=== PATIENT | female | born 1945 | race Caucasian/White ===

== ENCOUNTER 2016-12-31 10:36 | Inpatient (IN) ==
[2016-12-31 11:02] LABS: BILIRUBIN URINE NEGATIVE (NEGATIVE); BLOOD URINE NEGATIVE (NEGATIVE); CLARITY CLEAR (CLEAR); COLOR YELLOW; GLUCOSE URINE NEGATIVE (NEGATIVE); LEUKOCYTES URINE 1+ (NEGATIVE); NITRITE URINE NEGATIVE (NEGATIVE); PROTEIN URINE TRACE mg/dL (NEGATIVE); SP GRAVITY URINE 1.005; UROBILINOGEN URINE NORMAL
[2016-12-31 11:09] LABS: URINE CULTURE PL NEEDED? YES; URINE EPITHELIAL CELLS >10 /HPF (<10); URINE SOURCE CLEAN CATCH
[2016-12-31 11:18] LABS: BASO% 0.1 % (0.0-0.8); EOS# 0.06 X1000 (0.0-0.7); EOS% 0.5 % (0.0-10.0); HEMATOCRIT 41.6 % (37.0-47.0); HEMOGLOBIN 14.1 g/dL (12.0-16.0); IMM GRAN# 0.03 X1000 (0.0-0.04); IMM GRAN% 0.2 % (0.0-0.5); LYMPH# 1.19 X1000 (1.2-3.4); LYMPH% 9.2 % (20.5-51.1); MANUAL DIFF NEEDED? NO; MCH 30.2 PG (27-31); MCHC 33.9 g/dL (33-37); MCV 89.1 FL (81-99); MONO# 0.45 X1000 (0.11-0.59); MONO% 3.5 % (1.7-9.3); MPV 8.9 FL (7.4-10.4); NEUT% 86.5 % (42.2-75.2); PLT 327 X1000 (130-400); RBC 4.67 XMIL (4.2-5.4)
--- NOTE | 2016-12-31 11:26 | PROVIDER DOCUMENTATION ---
HPI-Abdominal Pain/GI Problem - General Chief Complaint: Abdominal Pain Stated Complaint: ABD PAIN Time Seen by Provider: 12/31/16 10:51 Source: patient Allergies/Adverse Reactions: Patient Allergies Allergy/AdvReac Type Severity Reaction Status Date / Time amphetamine aspartate * Allergy RASH Verified 12/07/16 21:57 [From Adderall] amphetamine sulfate * Allergy RASH Verified 12/07/16 21:57 [From Adderall] dextroamphetamine saccharate Allergy RASH Verified 12/07/16 21:57 * [From Adderall] dextroamphetamine sulfate * Allergy RASH Verified 12/07/16 21:57 [From Adderall] quetiapine fumarate * Allergy Unknown Verified 12/07/16 21:57 [From Seroquel] Home Medications: Home Medication List Medication Instructions Recorded Confirmed Last Taken Type Duloxetine HCl [Duloxetine HCl] 12/07/16 Unknown History Duloxetine [Cymbalta] 60 mg PO DAILY 12/07/16 12/07/16 12/06/16 History Ondansetron Odt [Zofran Odt] 12/07/16 Unknown History Sitagliptin [Januvia] 12/07/16 12/07/16 History Triamterene/Hydrochlorothiazid 12/07/16 12/07/16 History [Triamterene-Hctz 37.5-25 mg Cp] Diazepam [Valium] 10 mg PO TID #15 tablet 12/08/16 Unknown Rx Oxycodone HCl/Acetaminophen 1 each PO TID #15 tablet 12/08/16 Unknown Rx [Percocet 10-325 mg Tablet] - History of Present Illness-ABD Nature of Presenting Problems: 71 yo female presents to ER with c/o abdominal cramping/N/V that started yesterday afternoon. Her abd pain started in epigastric area and radiated bilateral LQ and settled into RLQ. She did have a moderate loose BM last night (she has a BM everyday). At 2 am she started vomiting. Abdominal Pain Onset Location: reports: generalized abdomen Pain Radiation: reports: no radiation Quality of Pain: reports: cramping Severity in ED: reports: severe Onset/Duration: reports: 24 hours ago Timing: reports: still present, getting worse Activities at Onset: reports: none Exposure to sick contacts?: No Modifying Factors: improves with: eating (worsens) Associated Symptoms: reports: nausea, vomiting Last BM: last night Dark Stools Present?: reports: none noticed Rectal Bleeding: reports: none # of Diarrhea Episodes: 0 Rectal Pain: reports: none # of Vomiting Episodes: 2 Emesis Description: reports: clear Bruising or Bleeding Gums?: No Similar Symptoms Previously?: No Recently seen or treated by another doctor?: No Review of Systems - Adult - REVIEW OF SYSTEMS - ADULT Constitutional: reports: no symptoms reported Eyes: reports: no symptoms reported Ears, Nose, Mouth & Throat: reports: no symptoms reported Cardiovascular: reports: no symptoms reported Respiratory: reports: no symptoms reported Gastrointestinal: reports: see HPI, abdominal pain, nausea, vomiting Genitourinary: reports: no symptoms reported Musculoskeletal: reports: no symptoms reported Integumentary: reports: no symptoms reported Neurological: reports: no symptoms reported Psychiatric: reports: no symptoms reported Endocrine: reports: no symptoms reported Hematologic/Lymphatic: reports: no symptoms reported Allergic/Immunologic: reports: no symptoms reported All Other Systems: Reviewed and Negative Past History - Adult - PAST MEDICAL HISTORY-ADULT Review of Records: reports: Old Records Reviewed, Nursing Assessment Review, Medications Reviewed, Social history reviewed & non-contributory. Major Childhood Illnesses: reports: denies history Cardiovascular: reports: HTN Respiratory: reports: denies history Gastrointestinal: reports: GERD Musculoskeletal: reports: chronic pain, intervertebral disc disease, other fractures, orthopedic injury Endocrine/Immune: reports: Diabetes - PRIOR SURGERIES/PROCEDURES Surgical/Procedure History: reports: hysterectomy, orthopedic (extremity) ( right shoulder x 3), back/neck - IMMUNIZATION STATUS Childhood Immunizations: See Nurse Assessment Flu Vaccine: See Nurse Assessment - SOCIAL HISTORY Smoking: denies Substance Use: denies Living Situation: family Physical Exam-General - PHYSICAL EXAM-ADULT Initial Vital Signs Reviewed: Yes - CONSTITUTIONAL General Appearance: appears well, alert, no apparent distress - EYES Eyes: PERRL/EOMI - HEAD, EARS, NOSE, MOUTH & THROAT HENMT: normocephalic/atraumatic - RESPIRATORY Respiratory: lungs clear, normal breath sounds - CARDIOVASCULAR Cardiovascular: normal peripheral pulses, regular rate, rhythm - GASTROINTESTINAL (ABDOMEN) Abdominal Exam: soft, abnormal bowel sounds (hypoactive), tenderness ( generalized; RLQ especially). negative: distended, guarding - MUSCULOSKELETAL Back Exam: normal inspection Extremity: normal gait, no pedal edema Peripheral Pulses: radial (R): 2+, radial (L): 2+ - SKIN Integumentary: normal color, normal turgor, warm/dry - NEUROLOGIC Neurologic: grossly normal - PSYCHIATRIC Psych/Mental Status: normal mood/affect, normal thought content, normal thought process, oriented x 3 Progress - PLAN OF CARE/RESULTS Progress/Plan/Lab Results: Vital Signs - 8 hr 12/31/16 10:41 Temperature 97.2 F L Pulse Rate 81 Respiratory Rate 18 Blood Pressure 135/74 O2 Sat by Pulse Oximetry 93 L Laboratory Results - last 24 hr 12/31/16 12/31/16 10:48 11:11 WBC 12.87 H RBC 4.67 Hgb 14.1 Hct 41.6 MCV 89.1 MCH 30.2 MCHC 33.9 RDW Std Deviation 12.9 Plt Count 327 MPV 8.9 Immature Gran % (Auto) 0.2 Neut % (Auto) 86.5 H Lymph % (Auto) 9.2 L [place] % (Auto) 3.5 Eos % (Auto) 0.5 Baso % (Auto) 0.1 Immature Gran # (Auto) 0.03 Neut # (Auto) 11.13 H Lymph # (Auto) 1.19 L [place] # (Auto) 0.45 Eos # (Auto) 0.06 Baso # (Auto) 0.01 Urine Source CLEAN CATCH Urine Color YELLOW Urine Clarity CLEAR Urine pH 7.0 Ur Specific [place] 1.005 Urine Protein TRACE A Urine Ketones TRACE Urine Blood NEGATIVE Urine Nitrite NEGATIVE Urine Bilirubin NEGATIVE Urine Urobilinogen NORMAL Urine Microscopic RBC Not Reportable Urine WBC 1+ A Urine Microscopic WBC 10-20 A Ur Epithelial Cells >10 A Urine Bacteria 2+ Urine Glucose NEGATIVE Orders Category Date Time Status Saline Loc DIRECTED Care 12/31/16 10:43 Completed NPO Diet 12/31/16 10:43 Active FLAT/UPRIGHT ABD/1 VIEW CHEST [RAD] Stat Exams 12/31/16 10:51 Taken AMYLASE [CHEM] Stat Lab 12/31/16 11:11 Received CBC WITH ELECTRONIC DIFF [HEME] Stat Lab 12/31/16 11:11 Completed COMPREHENSIVE METABOLIC PANEL [CHEM] Stat Lab 12/31/16 11:11 Received LIPASE [CHEM] Stat Lab 12/31/16 11:[address] W/POSS RFLX CULT [URINALYSIS] Stat Lab 12/31/16 10:48 Completed URINE CULTURE [RM] Routine Lab 12/31/16 11:09 Ordered 1340-Discussed with patient/spouse dx of appendicitis and consult to surgery; questions answered and they verbalized understanding. Result Diagrams: 12/31/16 11:11 12/31/16 11:11 - XRAY 1 XRAY Study: Chest, Abdomen Impression: Normal (no acute disease) XRAY Interpretation: Interpreted by Dr. Zamorano - CT/MRI 1 CT Study: Abdomen, Pelvis Impression: Abnormal (appendicitis w/o free air or abscess) CT Results: Interpreted by Dr. Zamorano - CONSULTS/PCP/HOSPITALIST Notification #1 *Consult/PCP/Hospitalist*: Dr. Chow Time Discussed: 13:44 (surgeon manager information) Consult Disposition: Will see in ED Departure - Departure Time of Disposition Decision: 13:42 DIAGNOSIS: Nausea & vomiting, Abdominal cramping Appendicitis Qualifiers: Appendicitis type: acute appendicitis Acute appendicitis type: other Qualified Code(s): K35.89 - Other acute appendicitis Disposition: ADMITTED INPATIENT 09 Certified Medical Emergency: Emergent Condition: Stable - Critical Care Note This patient required my direct personal management.: No Attestation - Physician/ TOMMY Attestation Patient care was provided by Advanced Practice Provider:: Yes Advanced Practice Provider:: Tammy Whiting Advanced Practice Provider documentation review:: The Mid-level provider documentation, treatment plan and medical decision making was reviewed by the physician who agrees with all treatment and medical decision making by the [facility].
[2016-12-31 11:30] LABS: AGAP 14; ALBUMIN 4.1 g/dL (3.5-5.0); ALKALINE PHOSPHATASE 174 U/L (32-104); AMYLASE 61 U/L (20-200); BUN 10 mg/dL (8-22); CALCIUM 9.4 mg/dL (8.8-10.2); CHLORIDE 96 mmol/L (98-107); COSMO 273; GOT 20 U/L (10-30); GPT 20 U/L (10-36); LIPASE 18 U/L (13-60); POTASSIUM 3.8 mmol/L (3.5-5.1); SODIUM 135 mmol/L (136-145); TCO2 25 mmol/L (25-35); TOTAL PROTEIN 7.3 g/dL (6.3-8.3)
[2016-12-31] MEDS ORDERED: ZOFRAN IV ONE (11:53)
[2016-12-31] MEDS ORDERED: PROTONIX IV ONE (11:53)
[2016-12-31] MEDS ORDERED: NS 500 ML IV ONE (11:53)
[2016-12-31] MEDS ORDERED: SODIUM CHLORIDE 0.9% INJ ONE (11:53)
[2016-12-31] MEDS ORDERED: MORPHINE IV ONE (11:55)
--- NOTE | 2016-12-31 11:55 | Diag Imaging Result Document ---
PROCEDURE NAME: FLAT/UPRIGHT ABD/1 VIEW CHEST - 12/31/2016 FLAT AND UPRIGHT AND CHEST, 3 VIEWS: FINDINGS: The lungs are well expanded. No pneumonia. No cardiomegaly. No free air beneath the diaphragm. No bowel obstruction. No organomegaly. No abnormal abdominal or pelvic calcifications. Mild scoliosis with degenerative spine changes. IMPRESSION: No acute abnormality.
[2016-12-31] MEDS ORDERED: ZOSYN 3.375 GM/NS 3.375 GM/50 ML IVPB IV ONE (14:29)
--- NOTE | 2016-12-31 14:54 | HISTORY AND PHYSICAL ---
CHIEF COMPLAINT: Abdominal pain. HISTORY OF PRESENT ILLNESS: A 71-year-old female with acute onset of abdominal pain yesterday evening described as crampy in nature in her mid abdomen and radiating and now located in her right lower quadrant this morning. This severity has been moderate with associated nausea and vomiting. It is worsened with standing up and it is lessened with morphine. PAST MEDICAL HISTORY: Hypertension. Diabetes. Depression. Chronic back pain. HOME MEDICATIONS: Oxycodone. Valium. Januvia. Triamterene/hydrochlorothiazide. Cymbalta. ALLERGIES: Adderall and Seroquel. PAST SURGICAL HISTORY: Vaginal hysterectomy. Right shoulder surgery. Low back surgery. FAMILY HISTORY: Reviewed and noncontributory. SOCIAL HISTORY: Negative for tobacco. She drinks a beer 1-3 times per week. No illicit drug use. She is retired nurse. REVIEW OF SYSTEMS: Ten systems reviewed and negative except as noted above. PHYSICAL EXAMINATION: VITAL SIGNS: Temperature 98.9 degrees, pulse 92, respirations 18, blood pressure 105/55, O2 saturation 95%. GENERAL: A well-developed, well-nourished female, in no distress who looks her stated age. HEENT: Normocephalic, atraumatic. Extraocular muscles intact. Pupils equal, round, reactive to light. Sclerae anicteric. Moist mucous membranes. Hearing grossly normal. NECK: Supple. No thyromegaly. CARDIOVASCULAR: Regular rate and rhythm. RESPIRATORY: Bilateral equal breath sounds. GASTROINTESTINAL: Soft, nondistended. No organomegaly or mass. She does have a positive rebound tenderness and she is focally tender in the right lower quadrant. SKIN: Warm and dry. No rash. MUSCULOSKELETAL: Moves all extremities equally and well. EXTREMITIES: No clubbing, cyanosis, or edema. LABORATORY: White blood cell count 12.8, hemoglobin 14, platelet count 327,000. Complete metabolic profile reviewed and notable for glucose of 167. Shows normal BUN and creatinine, amylase and lipase. IMAGING: CT of abdomen and pelvis was done and reviewed by me and does show inflamed swollen appendix without evidence of perforation. ASSESSMENT/PLAN: A 71-year-old female with acute appendicitis. We are going to the operating room this afternoon for laparoscopic appendectomy. I discussed the risks, benefits, and alternatives with her including bleeding, infection, injury to surrounding organs, such as the intestines or ureter, incisional hernia, and other imponderables. She understands and agrees to proceed. cc: Garcia Chow MD
[2016-12-31] MEDS ORDERED: ZEMURON ONE (15:00)
[2016-12-31] MEDS ORDERED: FENTANYL ONE (15:00)
[2016-12-31] MEDS ORDERED: ROBINUL ONE (15:00)
[2016-12-31] MEDS ORDERED: NEOSTIGMINE ONE (15:00)
[2016-12-31] MEDS ORDERED: DIPRIVAN 1% ONE (15:00)
[2016-12-31] MEDS ORDERED: DECADRON ONE (15:00)
[2016-12-31] MEDS ORDERED: QUELICIN ONE (15:00)
[2016-12-31] MEDS ORDERED: ZOFRAN ONE (15:00)
[2016-12-31] MEDS ORDERED: MARCAINE 0.25% PF/EPI 1:200,000 ONE ×2 (15:09)
[2016-12-31] MEDS ORDERED: LR 1,000 ML ONE ×2 (15:10)
--- NOTE | 2016-12-31 15:58 | Diag Imaging Result Document ---
PROCEDURE NAME: CT ABD/PELVIS W/ IV CONT ONLY - 12/31/2016 CT ABDOMEN AND PELVIS WITH INTRAVENOUS CONTRAST: FINDINGS: There is fatty infiltration of the liver. Normal spleen, pancreas, gallbladder, and adrenal glands. Normal enhancement of the kidneys. No renal masses. No hydronephrosis. No aortic aneurysm. Mild atherosclerosis. There are fluid distended loops of small bowel in the left and mid abdomen. The proximal appendix is distended and there are adjacent inflammatory changes. The distal small bowel loops are not dilated. The urinary bladder is distended and appears normal. The uterus has been removed. No pelvic mass. Trace free pelvic fluid. There are several scattered diverticula. IMPRESSION: 1. Acute appendicitis without free air or abscess. There apparently is an associated ileus. 2. Mild fatty infiltration of the liver. 3. Hysterectomy. Dr. Mcclendon was called in the emergency room at 1:26 PM.
[2016-12-31] MEDS ORDERED: DILAUDID IV PRN (17:53)
--- NOTE | 2016-12-31 17:56 | OPERATIVE NOTE ---
PROCEDURE DATE: 12/31/2016 PREOPERATIVE DIAGNOSES: Acute appendicitis. POSTOPERATIVE DIAGNOSIS: Acute ruptured appendicitis. PROCEDURE: Laparoscopic appendectomy. SURGEON: Garcia Chow MD. ANESTHESIA: General. ESTIMATED BLOOD LOSS: 30 mL. COMPLICATIONS: None apparent. SPECIMENS: Appendix. FINDINGS: The appendix was acutely inflamed and had perforated near its base. TECHNIQUE: The patient was brought to the operating room. General anesthesia was induced. A Sultana catheter was placed. She was prepped and draped in usual sterile fashion. 0.25% Marcaine with epinephrine was used to anesthetize our skin incisions. An 11 mm incision was made above the umbilicus. The fascia was exposed and incised sharply. Entry into the peritoneal cavity was obtained under direct vision with the Optiview device. Pneumoperitoneum was established. The camera was inserted. There was no evidence of injury to underlying structures. She was placed in Trendelenburg and left rotation. Two 5 mm incision ports were placed, one in the left lower quadrant, one in the midline suprapubic region. There was purulent fluid in the right lower quadrant and amongst the loops of bowel in the pelvis. There was peritonitis in the right lower quadrant and an obviously inflamed appendix. Near the base of the appendix, there was an area of perforation. There is a small amount of fecal matter or I should say Vegetable matter which was removed with forceps. I then began mobilizing the lateral peritoneal attachments of the cecum and appendix with the LigaSure device. The appendiceal mesentery was divided with the LigaSure. I then came across the base of the appendix, including a small portion of the cecum with an Endo-SILVIA stapler. The appendix was placed in an EndoCatch bag. I then irrigated copiously along the right side of the abdomen and pelvis and suctioned this out. A 19 Vaibhav drain was brought in and laid in the right lower quadrant near the staple line and brought out through my left lateral port site. It was anchored to the skin with 3-0 nylon. The bag and appendix were then brought out through the umbilical incision, which had to be extended a few centimeters to accommodate the size of the appendix. I removed the remaining port. I closed the umbilical fascia with a running 0 Vicryl. The skin was closed with running 4-0 subcuticular Monocryl and Steri-Strips. There is no apparent complications. She was awakened in stable condition and transferred to the recovery room. cc: Garcia Chow MD
[2016-12-31] MEDS: ZOFRAN IV PRN (21:19)
[2016-12-31] MEDS: ZOSYN 3.375 GM/NS 3.375 GM/50 ML IVPB IV SCH (21:19)
[2016-12-31] MEDS: LR 1,000 ML IV SCH (21:19)
[2016-12-31] MEDS: DILAUDID IV PRN (21:20)
[2017-01-01] MEDS: ZOSYN 3.375 GM/NS 3.375 GM/50 ML IVPB IV SCH ×4 (02:08→20:33)
[2017-01-01] MEDS: DILAUDID IV PRN ×4 (05:02→23:41)
[2017-01-01 06:52] LABS: HEMATOCRIT 33.3 % (37.0-47.0); HEMOGLOBIN 10.9 g/dL (12.0-16.0); MCH 30.1 PG (27-31); MCHC 32.7 g/dL (33-37); MPV 9.4 FL (7.4-10.4); RBC 3.62 XMIL (4.2-5.4)
[2017-01-01 07:02] LABS: AGAP 12; BUN 14 mg/dL (8-22); CALCIUM 8.9 mg/dL (8.8-10.2); CHLORIDE 100 mmol/L (98-107); COSMO 274; POTASSIUM 4.1 mmol/L (3.5-5.1); SODIUM 135 mmol/L (136-145); TCO2 24 mmol/L (25-35)
[2017-01-01] MEDS: NORCO-10 PO PRN ×2 (07:59→12:12)
[2017-01-01] MEDS ORDERED: CYMBALTA PO SCH (09:00)
[2017-01-01] MEDS: LR 1,000 ML IV SCH (11:10)
[2017-01-01] MEDS: LOVENOX SUBQ SCH (13:36)
[2017-01-01] MEDS: VALIUM PO SCH ×2 (13:36→17:32)
--- NOTE | 2017-01-01 14:25 | PROGRESS NOTE ---
DATE: 01/01/2017 SUBJECTIVE: The patient is pretty sore all over especially in her abdomen. She is tolerating a clear liquid diet. She is ambulating a little and voiding. OBJECTIVE: Vital signs: She is afebrile. Vital signs are stable. General: She is alert and oriented x3. No acute distress. Gastrointestinal: Soft, nondistended. Appropriately tender but still moderately tender throughout her abdomen. The BEATRICE drain has 50 mL of seropurulent drainage. LABORATORY: White blood cell count 13.5, hemoglobin 10.9. Sodium 135, potassium 4.1, chloride 100, CO2 24, BUN 14, creatinine 0.8, glucose 165. ASSESSMENT AND PLAN: A 71-year-old female postop day 1 laparoscopic appendectomy for perforated appendicitis. She is doing okay but still in quite a bit of pain. Her blood count has dropped some. I think this will normalize overnight. We are going to recheck a CBC in the morning. She will remain on Zosyn for now and will add Lovenox for DVT prophylaxis. cc: Garcia Chow MD
[2017-01-01] MEDS: CYMBALTA PO SCH (20:33)
[2017-01-02] MEDS: ZOSYN 3.375 GM/NS 3.375 GM/50 ML IVPB IV SCH ×4 (02:16→21:22)
[2017-01-02] MEDS: DILAUDID IV PRN ×3 (03:13→09:11)
[2017-01-02 06:47] LABS: HEMATOCRIT 39.9 % (37.0-47.0); HEMOGLOBIN 12.9 g/dL (12.0-16.0); MCHC 32.3 g/dL (33-37); MCV 92.8 FL (81-99); MPV 9.7 FL (7.4-10.4); RBC 4.3 XMIL (4.2-5.4)
[2017-01-02 06:53] LABS: AGAP 12; BUN 11 mg/dL (8-22); CALCIUM 9.3 mg/dL (8.8-10.2); CHLORIDE 97 mmol/L (98-107); COSMO 270; POTASSIUM 3.8 mmol/L (3.5-5.1); SODIUM 134 mmol/L (136-145); TCO2 25 mmol/L (25-35)
[2017-01-02] MEDS ORDERED: TYLENOL PO PRN (08:47)
[2017-01-02] MEDS: VALIUM PO SCH ×3 (09:12→17:29)
[2017-01-02] MEDS: DYAZIDE PO SCH (09:12)
[2017-01-02] MEDS: JANUVIA PO SCH (09:12)
[2017-01-02] MEDS: ZOFRAN IV PRN (09:22)
[2017-01-02] MEDS ORDERED: DILAUDID IV PRN (10:38)
--- NOTE | 2017-01-02 11:11 | PROGRESS NOTE ---
DATE: 01/02/2017 SUBJECTIVE: She continues to complain of moderately severe abdominal pain with some nausea. She also had a low-grade fever this morning. OBJECTIVE: Vital Signs: Her temperature this morning was 100.5, pulse in the 90s. Blood pressure 107/41. O2 saturation 95%. General: She is alert and oriented x3. No acute distress. CV: Regular rate and rhythm. Respiratory: No work of breathing. Gastrointestinal: Soft and nondistended. Appropriately tender. The drain is putting out more serosanguineous appearing fluid now. Laboratory: White blood cell count 14.6. ASSESSMENT/PLAN: A 71-year-old female status post laparoscopic appendectomy for perforated appendicitis. She continues to have fever and leukocytosis and significant pain. We will keep her here again tonight for continued intravenous antibiotics and pain control. cc: Garcia Chow MD
[2017-01-02] MEDS: PERCOCET-10 PO PRN ×2 (11:37→21:21)
[2017-01-02] MEDS: LOVENOX SUBQ SCH (13:14)
[2017-01-02] MEDS: CYMBALTA PO SCH (21:21)
[2017-01-03] MEDS: ZOSYN 3.375 GM/NS 3.375 GM/50 ML IVPB IV SCH ×4 (03:54→20:48)
[2017-01-03] MEDS: PERCOCET-10 PO PRN ×4 (05:21→21:10)
[2017-01-03 06:10] LABS: MANUAL DIFF NEEDED? NO
[2017-01-03 07:01] LABS: BASO% 0.1 % (0.0-0.8); EOS# 0.27 X1000 (0.0-0.7); EOS% 2.7 % (0.0-10.0); HEMATOCRIT 34.3 % (37.0-47.0); HEMOGLOBIN 11.2 g/dL (12.0-16.0); IMM GRAN# 0.02 X1000 (0.0-0.04); IMM GRAN% 0.2 % (0.0-0.5); LYMPH% 11.1 % (20.5-51.1); MCHC 32.7 g/dL (33-37); MONO# 0.86 X1000 (0.11-0.59); MONO% 8.6 % (1.7-9.3); MPV 9.7 FL (7.4-10.4); NEUT% 77.3 % (42.2-75.2); PLT 253 X1000 (130-400); RBC 3.73 XMIL (4.2-5.4)
[2017-01-03] MEDS: JANUVIA PO SCH (08:22)
[2017-01-03] MEDS: DYAZIDE PO SCH (08:22)
[2017-01-03] MEDS: VALIUM PO SCH ×3 (08:22→17:20)
[2017-01-03] MEDS: LOVENOX SUBQ SCH (12:36)
[2017-01-03] MEDS: CYMBALTA PO SCH (20:48)
[2017-01-04] MEDS: ZOSYN 3.375 GM/NS 3.375 GM/50 ML IVPB IV SCH ×2 (03:14→08:47)
[2017-01-04] MEDS: PERCOCET-10 PO PRN ×2 (03:16→06:51)
[2017-01-04 07:35] VITALS: BP 115/51
[2017-01-04] MEDS: DYAZIDE PO SCH (08:47)
[2017-01-04] MEDS: JANUVIA PO SCH (08:47)
--- NOTE | 2017-01-23 15:04 | PROGRESS NOTE ---
DATE: 01/03/2017 SUBJECTIVE: The patient had a low-grade fever overnight but overall she is starting to feel a little better. She is eating some and ambulating a little more. OBJECTIVE: Temperature max 100.0 degrees. Current temperature 98 degrees. Vital signs are stable.General: She is alert and oriented x3. No acute distress. Gastrointestinal: Soft, nondistended. Appropriately tender. The drain shows serosanguineous fluid. LABORATORY: White blood cell count 9.9, hemoglobin 11, hematocrit 34. ASSESSMENT/PLAN: 71-year-old female status post laparoscopic appendectomy for perforated appendicitis. She is slowly improving. She still has some low-grade fever. We will keep her on antibiotics and if her fever resolves today then we consider home tomorrow. cc: Garcia Chow MD
--- NOTE | 2017-01-23 18:24 | DISCHARGE SUMMARY ---
ADMISSION DATE: 12/31/2016 DISCHARGE DATE: 01/04/2017 ADMITTING DIAGNOSES: 1. Acute appendicitis. 2. History of hypertension, diabetes, depression and chronic back pain. DISCHARGE DIAGNOSES: 1. Perforated appendicitis. 2. History of hypertension, diabetes, depression and chronic back pain. PROCEDURE: Laparoscopic appendectomy. ADMITTING PHYSICIAN: Garcia Chow MD. BRIEF HISTORY: A 71-year-old female presented to the hospital on 12/31/2016 with abdominal pain. Workup revealed appendicitis. She was taken to the operating room and found to have a perforated appendix. She underwent appendectomy and stayed in the hospital for further care. HOSPITAL COURSE: After the operation she remained in the hospital for 4 more days. She received IV antibiotics. She slowly advanced her diet from clear liquids to soft. Her pain took some time to get control of but this did gradually improve. She did have some low-grade fever up until 01/03/2017. After 24 hours of no fever on 01/04/2017, she was felt stable for discharge. She did go home with a drain and was instructed how to use it. Prior to discharge her white blood cell count had normalized. DISCHARGE INSTRUCTIONS: 1. No lifting over 15 pounds. 2. She should sponge bathe. 3. She should record the output in the drain daily. DISCHARGE MEDICATIONS: 1. Percocet 10 mg 1 p.o. q.4 hours p.r.n. pain. 2. Augmentin 875 mg 1 p.o. q.12 hours. 3. She will continue her home Zofran, hydrochlorothiazide/ triamterene. 4. Cymbalta. 5. Januvia. 6. Percocet. 7. She will stop her home Valium. FOLLOWUP: Appointment with Dr. Chow in 1 week. cc: Garcia Chow MD
== END 2017-01-04 12:00 | disposition home or self-care (01) ==
LOC: P.ED 10:36 → OBSVTOIN 15:20 → P.SURHOLD 15:20 → INTOOBSV 15:20 → P.LD 17:49 → P.MEDSURG 18:30
PROVIDERS: ADMIT Surgery; ATTEND Surgery